=== PATIENT | male | born 1960 | race Caucasian/White ===

== ENCOUNTER 2018-01-05 09:42 | Emergency (ER) | payer SELFPAY ==
--- NOTE | 2018-01-05 10:04 | ER Document Report ---
ED Medical Screen (RME) - General Chief Complaint: Leg Pain Stated Complaint: LEG PAIN Time Seen by Provider: 01/05/18 09:58 Mode of Arrival: Ambulatory Information source: Patient Notes: 57-year-old male with coronary artery disease, congestive heart failure, hypertension, hyperlipidemia, type 2 diabetes presents with intermittent right calf pain for 3 weeks. Patient denies any injury. He states it does not feel like his usual muscle cramping. He denies any history of PE, DVT. I have greeted and performed a rapid initial assessment of this patient. A comprehensive ED assessment and evaluation of the patient, analysis of test results and completion of medical decision making process we will be contacted by additional ED providers. PHYSICAL EXAMINATION: GENERAL: Well-appearing, well-nourished and in no acute distress. LUNGS: No respiratory distress Musculoskeletal: No obvious swelling, erythema of the right lower extremity. Pain with palpation of the right calf. NEUROLOGICAL: Normal speech, normal gait. PSYCH: Normal mood, normal affect. SKIN: Warm, Dry, normal turgor, no rashes or lesions noted. TRAVEL OUTSIDE OF THE [place] IN LAST 30 DAYS: No - HPI Onset: Other Onset/Duration: Intermittent Quality of pain: Burning, Stabbing Severity: Moderate Associated Symptoms: denies: Chest pain, Shortness of breath Exacerbated by: Movement, Walking Relieved by: Denies Similar symptoms previously: Yes Recently seen / treated by doctor: No - Related Data Smoking: Non-smoker Frequency of alcohol use: None Drug Abuse: None Allergies/Adverse Reactions: codeine [Codeine] Allergy (Verified 01/05/18 09:48) Nausea Past Medical History - Social History Chew tobacco use (# tins/day): No Frequency of alcohol use: None Drug Abuse: None - Past Medical History Cardiac Medical History: Reports: Hx Congestive Heart Failure, Hx Coronary Artery Disease, Hx Hypercholesterolemia, Hx Hypertension Denies: Hx DVT, Hx Heart Attack, Hx Pulmonary Embolism Pulmonary Medical History: Denies: Hx Asthma, Hx Bronchitis, Hx COPD, Hx Pneumonia, Hx Tuberculosis - older brother had TB 1968 Endocrine Medical History: Reports: Hx Diabetes Mellitus Type 2 Renal/ Medical History: Denies: Hx Peritoneal Dialysis GI Medical History: Reports: Hx Gastroesophageal Reflux Disease Psychiatric Medical History: Denies: Hx Depression Past Surgical History: Reports: Hx Oral Surgery - wisdom, Hx Orthopedic Surgery - L4-L5. Denies: Hx Pacemaker - Immunizations Hx Diphtheria, Pertussis, Tetanus Vaccination: Yes Physical Exam - Vital signs Vitals: Temp Pulse Resp BP Pulse Ox 98.0 F 59 L 16 159/87 H 94 01/05/18 09:53 01/05/18 09:53 01/05/18 09:53 01/05/18 09:53 01/05/18 09:53 Course - Vital Signs Vital signs: Temp Pulse Resp BP Pulse Ox 98.0 F 59 L 16 159/87 H 94 01/05/18 09:53 01/05/18 09:53 01/05/18 09:53 01/05/18 09:53 01/05/18 09:53 Doctor's Discharge - Discharge Referrals: MARIO ANGULO MD [Primary Care Provider] - Follow up as needed
[2018-01-05 10:40] LABS: ANION GAP 10 (5-19); BLOOD UREA NITROGEN 13 mg/dL (7-20); CALCIUM 9.3 mg/dL (8.4-10.2); CARBON DIOXIDE 27 mmol/L (22-30); CHLORIDE 100 mmol/L (98-107); GLUCOSE 212 mg/dL (75-110); POTASSIUM 4.1 mmol/L (3.6-5.0); SODIUM 136.5 mmol/L (137-145)
--- NOTE | 2018-01-05 10:57 | ER Document Report ---
ED General - General Chief Complaint: Leg Pain Stated Complaint: LEG PAIN Time Seen by Provider: 01/05/18 09:58 Mode of Arrival: Ambulatory TRAVEL OUTSIDE OF THE [place] IN LAST 30 DAYS: No - HPI Notes: Patient is a 57-year-old male that presents to the emergency department for chief complaint of right leg pain. Patient reports a sharp hot pain in his medial right calf that has been intermittent for the last 3 weeks. He states it initially lasted 30-40 seconds at a time and then completely resolved. He states when it started it occurred maybe every other day. He is now having the pain 4-5 times daily. He states that it is nonradiating. There is no aggravating or relieving factors. He took Motrin today with no relief. He denies any history or family history of DVT/PE. He denies any chest pain, palpitations and shortness of breath. He denies injury to the area. Past Medical History: Diabetes, CAD, CHF, hypertension, hyperlipidemia Past Surgical History: Back surgery Social History: Denies drugs alcohol and tobacco Family History: Reviewed and noncontributory for presenting illness Allergies: Reviewed, see documented allergy list. REVIEW OF SYSTEMS: CONSTITUTIONAL : No fever No chills No diaphoresis No recent illness EENT: No vision changes No congestion No sore throat CARDIOVASCULAR: No chest pain No palpitations RESPIRATORY: No shortness of breath No cough No difficulty breathing GASTROINTESTINAL: No abdominal pain No nausea No vomiting No diarrhea GENITOURINARY: No dysuria No hematuria No difficulty urinating MUSCULOSKELETAL: No back pain leg pain No arm pain SKIN: No rashes No lesions LYMPHATIC: No swollen, enlarged glands. NEUROLOGICAL: No lightheadedness No headache No weakness No paresthesias PSYCHIATRIC: No anxiety No depression PHYSICAL EXAMINATION: Vital signs reviewed, nursing noted reviewed. GENERAL: Well-appearing, well-nourished and in no acute distress. HEAD: Atraumatic, normocephalic. EYES: Eyes appear normal, extraocular movements intact, sclera anicteric, conjunctiva are normal. ENT: nares patent, oropharynx clear without exudates. Moist mucous membranes. NECK: Normal range of motion, supple without lymphadenopathy LUNGS: Breath sounds clear to auscultation bilaterally and equal. No wheezes rales or rhonchi. HEART: Regular rate and rhythm without murmurs. +2/4 DP and PT pulses bilaterally. normal capillary refill in bilateral lower extremities. ABDOMEN: Soft, nontender, normoactive bowel sounds. No rebound, guarding, or rigidity. No masses appreciated. EXTREMITIES: Nontender, good range of motion, no pitting or edema. Negative Homans sign bilaterally NEUROLOGICAL: No focal neurological deficits. Moves all extremities spontaneously Motor and sensory grossly intact on exam. PSYCH: Normal mood, normal affect. SKIN: Warm, Dry, normal turgor, no rashes or lesions noted on exposed skin - Related Data Allergies/Adverse Reactions: codeine [Codeine] Allergy (Verified 01/05/18 09:48) Nausea Past Medical History - General Information source: Patient - Social History Smoking Status: Never Smoker Chew tobacco use (# tins/day): No Frequency of alcohol use: None Drug Abuse: None Family History: Reviewed & Not Pertinent, CAD Patient has suicidal ideation: No Patient has homicidal ideation: No - Past Medical History Cardiac Medical History: Reports: Hx Congestive Heart Failure, Hx Coronary Artery Disease, Hx Hypercholesterolemia, Hx Hypertension Denies: Hx DVT, Hx Heart Attack, Hx Pulmonary Embolism Pulmonary Medical History: Denies: Hx Asthma, Hx Bronchitis, Hx COPD, Hx Pneumonia, Hx Tuberculosis - older brother had TB 1968 Endocrine Medical History: Reports: Hx Diabetes Mellitus Type 2 Renal/ Medical History: Denies: Hx Peritoneal Dialysis GI Medical History: Reports: Hx Gastroesophageal Reflux Disease Psychiatric Medical History: Denies: Hx Depression Past Surgical History: Reports: Hx Oral Surgery - wisdom, Hx Orthopedic Surgery - L4-L5. Denies: Hx Pacemaker - Immunizations Hx Diphtheria, Pertussis, Tetanus Vaccination: Yes Review of Systems - Review of Systems Notes: Dictated Physical Exam - Vital signs Vitals: Temp Pulse Resp BP Pulse Ox 98.0 F 59 L 16 159/87 H 94 01/05/18 09:53 01/05/18 09:53 01/05/18 09:53 01/05/18 09:53 01/05/18 09:53 - Notes Notes: Dictated Course - Re-evaluation Re-evalutation: 01/05/18 10:57 Vitals reviewed. Nursing notes reviewed. Currently patient is asymptomatic and does not require any medication for pain. Ultrasound will be obtained to evaluate for DVT. Lab work obtained to evaluate for electrolyte derangements. He has normal perfusion and no arterial occlusion. 01/05/18 11:53 Lab work shows no electrolyte derangements or hypomagnesemia. Venous duplex negative for acute DVT. Patient still not having any symptoms while in the emergency room. He will follow with his primary care doctor. Symptoms may be related to neuropathy which he has previously been diagnosed with but has not been taking any medication because of side effects. Patient in agreement with following with his PCP for reevaluation in a few days. He will return for new or worsening symptoms. Discharged home in stable condition. Laboratory 01/05/18 10:10 Sodium 136.5 L Potassium 4.1 Chloride 100 Carbon Dioxide 27 Anion Gap 10 BUN 13 Creatinine 0.70 Est GFR ( Amer) > 60 Est GFR (Non-Af Amer) > 60 Glucose 212 H Calcium 9.3 Magnesium 1.8 - Vital Signs Vital signs: Temp Pulse Resp BP Pulse Ox 98.0 F 59 L 16 159/87 H 94 01/05/18 09:53 01/05/18 09:53 01/05/18 09:53 01/05/18 09:53 01/05/18 09:53 - Laboratory Result Diagrams: 01/05/18 10:10 Laboratory results interpreted by me: 01/05/18 10:10 Sodium 136.5 L Glucose 212 H Discharge - Discharge Clinical Impression: Right leg pain Condition: Stable Disposition: HOME, SELF-CARE Instructions: Leg Pain Nonspecific ([facility]) Additional Instructions: Please return to the emergency department if you have any worsening, or concern of your symptoms. Please return to the emergency department if you develop chest pain, difficulty breathing, severe abdominal pain, or ongoing vomiting. Please follow-up with your primary care physician in 2-3 days and any other recommended physicians. If prescribed, take all medications as directed. If you have any questions or concerns do not hesitate to return the emergency department for evaluation. [] Referrals: MARIO ANGULO MD [Primary Care Provider] - Follow up in 3-5 days
[2018-01-05 11:57] VITALS: BP 151/88
--- NOTE | 2018-01-05 12:14 | RADIOLOGY REPORT (SQ) ---
EXAM DESCRIPTION: VENOUS UNILATERAL LOWER COMPLETED DATE/TIME: 01/05/2018 11:59 am REASON FOR STUDY: pain right leg / COMPARISON: None. TECHNIQUE: Dynamic and static aranda scale and color images acquired of the right leg venous system. S elected spectral images acquired with additional compression and augmentation maneuvers. The contrala teral common femoral vein and saphenofemoral junction were also imaged. Images stored on PACS. LIMITATIONS: None. FINDINGS: COMMON FEMORAL: Normal phasicity, compression and augmentation. No visualized echogenic ma terial on aranda scale. No defects on color images. FEMORAL: Normal compression and augmentation. No visualized echogenic material on aranda scale. No defe cts on color images. POPLITEAL: Normal compression, augmentation. No visualized echogenic material on aranda scale. No defec ts on color images. CALF VESSELS: Normal compression, augmentation. No visualized echogenic material on aranda scale. No de fects on color images. GSV and SSV: Normal compression, augmentation. No visualized echogenic material on aranda scale. No def ects on color images. ANY DEEP VENOUS INSUFFICIENCY: Not evaluated. ANY EVIDENCE OF POPLITEAL CYST: No. OTHER: No other significant finding. CONTRALATERAL COMMON FEMORAL VEIN AND SAPHENOFEMORAL JUNCTION: Normal phasicity, compression and augmentation. No visualized echogenic material on aranda scale. No de fects on color images. IMPRESSION: NO EVIDENCE DVT OR SVT IN THE RIGHT LEG. TECHNICAL DOCUMENTATION: JOB ID: [id number] [employer]- All Rights Reserved Reading location - IP/workstation name: [facility]-RR
== END 2018-01-05 13:23 | disposition home or self-care (01) ==
LOC: ER 09:42
DX: M79.661 Pain in right lower leg (principal); E11.40 Type 2 diabetes mellitus with diabetic neuropathy, unspecified; I25.10 Atherosclerotic heart disease of native coronary artery without angina pectoris; I10 Essential (primary) hypertension; Z88.5 Allergy status to narcotic agent
CPT/HCPCS: 36415; 80048; 83735; 93971; 99284

== ENCOUNTER 2018-09-15 02:21 | Inpatient (IN) | payer OTHER ==
[2018-09-15] MEDS ORDERED: NORMAL SALINE 1000 ML 1,000 ML IV ONE (02:52)
[2018-09-15] MEDS ORDERED: ONDANSETRON HCL INJ/PF 4 MG/2 ML SDV IV ONE (02:52)
[2018-09-15] MEDS ORDERED: HYDROMORPHONE HCL INJ/PF 2 MG/ML AMPULE IV ONE ×2 (02:52→04:33)
--- NOTE | 2018-09-15 02:59 | ER Document Report ---
ED General - General Chief Complaint: Abdominal Pain Stated Complaint: STOMACH PAIN Time Seen by Provider: 09/15/18 02:41 Notes: Patient is a pleasant 58-year-old male who presents with complaint of abdominal distention and pain as well as intractable vomiting. Patient says symptoms started about 24 hours ago. He said initially started his pain. He said he did have a small bowel movement at that time. Initially was passing little gas but has not passed gas in the last 12 to 18 hours. He says starting approximately 12 hours ago he started having a lot of vomiting. He says he cannot hold anything down. He denies checking his temperature, but said he felt febrile earlier. No history of abdominal surgeries. Patient denies this ever happening in the past. TRAVEL OUTSIDE OF THE [place] IN LAST 30 DAYS: No - Related Data Allergies/Adverse Reactions: codeine [Codeine] Allergy (Verified 01/05/18 09:48) Nausea Past Medical History - Social History Smoking Status: Unknown if Ever Smoked Frequency of alcohol use: None Drug Abuse: None Family History: Reviewed & Not Pertinent, CAD - Past Medical History Cardiac Medical History: Reports: Hx Congestive Heart Failure, Hx Coronary Hannah ry Disease, Hx Hypercholesterolemia, Hx Hypertension Denies: Hx DVT, Hx Heart Attack, Hx Pulmonary Embolism Pulmonary Medical History: Denies: Hx Asthma, Hx Bronchitis, Hx COPD, Hx Pneumonia, Hx Tuberculosis - older brother had TB 1968 Endocrine Medical History: Reports: Hx Diabetes Mellitus Type 2 Renal/ Medical History: Denies: Hx Peritoneal Dialysis GI Medical History: Reports: Hx Gastroesophageal Reflux Disease Psychiatric Medical History: Denies: Hx Depression Past Surgical History: Reports: Hx Oral Surgery - wisdom, Hx Orthopedic Surgery - L4-L5. Denies: Hx Pacemaker - Immunizations Hx Diphtheria, Pertussis, Tetanus Vaccination: Yes Review of Systems - Review of Systems Notes: My Normal Review Basic REVIEW OF SYSTEMS: CONSTITUTIONAL : Denies fever, chills, or sweats. Denies recent illness. EENT: Denies eye, ear, throat, or mouth pain or symptoms. Denies nasal or sinus congestion. RESPIRATORY: Denies cough, cold, or chest congestion. Denies shortness of breath, difficulty breathing, or wheezing. GASTROINTESTINAL: Abdominal pain and vomiting. MUSCULOSKELETAL: Denies neck or back pain or joint pain or swelling. SKIN: Denies rash or skin lesions. NEUROLOGICAL: Denies altered mental status or loss of consciousness. Denies headache. Denies weakness or paralysis or loss of use of either side. Denies problems with gait or speech. Denies sensory or motor loss. ALL OTHER SYSTEMS REVIEWED AND NEGATIVE. Physical Exam - Vital signs Vitals: Temp Pulse Resp BP Pulse Ox 98.1 F 91 26 H 157/87 H 92 09/15/18 02:24 09/15/18 02:24 09/15/18 02:24 09/15/18 02:24 09/15/18 02:24 - Notes Notes: General Appearance: Well nourished, alert, cooperative, no acute distress, moderate obvious discomfort. Vitals: reviewed, See vital signs table. Head: no swelling or tenderness to the head Eyes: PERRL, EOMI, Conjuctiva clear Lungs: No wheezing, No rales, No rhonci, No accessory muscle use, good air exchange bilaterally. Heart: Normal rate, Regular rythm, No murmur, no rub Abdomen: Normal BS. Abdomen is very distended. He has moderate generalized pain to palpation. There is really no focality to the pain. His abdomen is not rigid or firm despite distention. It is still soft. Bedside FAST exam does not show any evidence of free fluid in the abdomen. Extremities: s good pulses in all extremities, no swelling or tenderness in the extremities, no edema. Skin: warm, dry, appropriate color, no rash Neuro: speech clear, oriented x 3, normal affect, responds appropriately to questions. Course - Re-evaluation Re-evalutation: 09/15/18 02:53 Initial evaluation patient's abdomen is very distended. It is not hard or peritoneal nature but is very distended and concerning on exam. I did a quick FAST exam. There is no free fluid in the abdomen. Bladder is not distended. I have ordered acute abdominal series and asked radiology to come over and performed immediately and do a portable. Patient's vital signs are currently stable. We will place him on a monitor. I have ordered pain medicine, nausea m edicine as well as labs. 09/15/18 03:32 Patient's x-ray demonstrates what appears to be obstruction with a very large gaseous distention of the small bowel. I informed patient I recommend placing a NG tube to decompress his abdomen as soon as possible. Patient is agreeable to this. I did explain the procedure to him. I will give him a small dose of Versed prior to placing the NG tube. 09/15/18 04:01 After placement of NG tube we initially got out 1100 mL's of yellowish fluid. Patient is tolerating NG tube well. We will send the patient for CT scan with IV contrast. Oral contrast not being used being that patient had such severe distention and required NG tube for decompression and would not tolerate p.o. 09/15/18 05:41 CT scan shows mid to distal small bowel obstruction with possible transition point right lower quadrant. I did call the surgeon, Dr. Rich and discussed case with him. He said he be happy to follow the patient request of medicine could admit the patient. I did speak with the hospitalist, Dr. Mccracken, who agrees to admit the patient. Dictation of this chart was performed using voice recognition software; therefore, there may be some unintended grammatical errors. - Vital Signs Vital signs: Temp Pulse Resp BP Pulse Ox 98.1 F 91 20 134/73 H 93 09/15/18 02:24 09/15/18 02:24 09/15/18 05:01 09/15/18 05:00 09/15/18 05:01 - Laboratory Result Diagrams: 09/15/18 03:10 09/15/18 03:10 Laboratory results interpreted by me: 09/15/18 09/15/18 09/15/18 03:10 03:10 03:10 RBC 6.20 H Hgb 17.1 H MCV 79 L RDW 14.2 H Plt Count 139 L Monocytes % 14.3 H Chloride 96 L BUN 27 H Glucose 217 H Lactic Acid 2.4 H Total Bilirubin 1.4 H AST 97 H ALT 151 H Discharge - Discharge Clinical Impression: Small bowel obstruction Condition: Stable Disposition: ADMITTED INPATIENT Admitting Provider: Nawaf (Hospitalist) Unit Admitted: Telemetry
[2018-09-15 03:29] LABS: ABSOLUTE LYMPHOCYTES (AUTO) 1.4 10^3/uL (0.5-4.7); ABSOLUTE MONOCYTES (AUTO) 1.2 10^3/uL (0.1-1.4); ABSOLUTE NEUT (AUTO) 5.5 10^3/uL (1.7-8.2); BASOPHILS % (AUTO) 0.4 % (0-2); EOSINOPHILS % (AUTO) 0.5 % (0-6); HEMATOCRIT 48.7 % (37.9-51.0); HEMOGLOBIN 17.1 g/dL (13.5-17.0); LYMPHOCYTES % (AUTO) 17.7 % (13-45); MEAN CORPUSCULAR HEMOGLOBIN 27.6 pg (27.0-33.4); MEAN CORPUSCULAR HGB CONC 35.2 g/dL (32.0-36.0); MEAN CORPUSCULAR VOLUME 79 fl (80-97); MONOCYTES % (AUTO) 14.3 % (3-13); PLATELET COUNT 139 10^3/uL (150-450); RED CELL DISTRIBUTION WIDTH 14.2 % (11.5-14.0); SEGMENTED NEUTROPHILS % (AUTO) 67.1 % (42-78); TOTAL CELLS COUNTED % (AUTO) 100 %; WHITE BLOOD COUNT 8.2 10^3/uL (4.0-10.5)
[2018-09-15] MEDS ORDERED: MIDAZOLAM 2 MG/2 ML INJ IV ONE (03:31)
[2018-09-15] MEDS ORDERED: LIDOCAINE 2% JELLY 5 ML TUBE TOP ONE (03:31)
--- NOTE | 2018-09-15 03:47 | RADIOLOGY REPORT (SQ) ---
EXAM DESCRIPTION: XR ABDOMEN SUPINE AND ERECT WITH CHEST (ABD ACUTE SERIES) COMPLETED DATE/TME: 09/15/2018 02:51 CLINICAL HISTORY: 58 years, Male, abdominal pain and distention COMPARISON: None. NUMBER OF VIEWS: 3 TECHNIQUE: Upright chest with supine and erect views of the abdomen LIMITATIONS: None. FINDINGS: Cardiomegaly. Low lung volumes. No pneumothorax. Lungs are clear. No free air under the hemidiaphragms. Dilated air-filled loops of small bowel for small bowel obstruction is not excluded. Maximal diameter of small bowel is approximately 5.6 cm. Associated air-fluid levels. IMPRESSION: No acute cardiopulmonary process. Findings concerning for small bowel obstruction copyright 2010 [employer]- All Rights Reserved
[2018-09-15 03:49] LABS: ALANINE AMINOTRANSFERASE 151 U/L (21-72); ALBUMIN 4.1 g/dL (3.5-5.0); ALKALINE PHOSPHATASE 61 U/L (38-126); ANION GAP 13 (5-19); ASPARTATE AMINO TRANSFERASE 97 U/L (17-59); BILIRUBIN,DIRECT 0.3 mg/dL (0.0-0.4); BILIRUBIN,TOTAL 1.4 mg/dL (0.2-1.3); BLOOD UREA NITROGEN 27 mg/dL (7-20); CALCIUM 8.9 mg/dL (8.4-10.2); CARBON DIOXIDE 29 mmol/L (22-30); CHLORIDE 96 mmol/L (98-107); GLUCOSE 217 mg/dL (75-110); LIPASE 42.7 U/L (23-300); POTASSIUM 3.8 mmol/L (3.6-5.0); SODIUM 137.9 mmol/L (137-145); TOTAL PROTEIN 6.9 g/dL (6.3-8.2)
--- NOTE | 2018-09-15 05:13 | RADIOLOGY REPORT (SQ) ---
EXAM: CT abdomen and pelvis with IV contrast CLINICAL DATA: 58-year-old male with abdominal pain, rule out bowel obstruction TECHNICAL DATA: Axial CT imaging of the abdomen and pelvis was performed following the administration of intravenous contrast.. Sagittal and coronal reconstructed images were then performed. The CT study is performed according to ALARA (as low as reasonably achievable) or ALARA/IMAGE GENTLY, with automatic adjustment of mA and/or kV according to patient size. Performed on: 09/15/2018 at 4:35 AM. Comparison: Prior KUB performed on 03/30/2013 FINDINGS: Lung bases: The lung bases are clear. There is minimal bibasilar atelectasis and/or fibrosis. Liver: The liver is enlarged and measures 21 cm in craniocaudal dimension. No focal hepatic abnormalities are identified. There is decreased attenuation of the liver commonly due to fatty infiltration. Spleen: The spleen is mildly enlarged and measures 14 cm in craniocaudal dimension Gallbladder and bile duct: The gallbladder is well distended and unremarkable. There is no biliary ductal dilatation. Pancreas: The pancreas is grossly normal in size and configuration. Adrenal Glands:The adrenal glands are normal in size and configuration. Kidneys:The kidneys are normal in size and configuration. There is no evidence of hydronephrosis. There is no evidence of nephrolithiasis. There is an approximately 1.4 cm sharply circumscribed hypodense lesion along the cortex of the midpole of the left kidney. This likely represents an incidental renal cyst Stomach:The stomach is grossly normal. There is no definite hiatal hernia. A feeding tube extends into the stomach. Bowel: There are multiple dilated fluid-filled small bowel loops compatible with a mid to distal small bowel obstruction. The transition point is not clearly visualized but is suspected to be within the right lower quadrant. There is evidence of colonic diverticulosis. Appendix: The appendix is normal. Free air:There is no evidence of free air. Free fluid: There is no evidence of free fluid. Vasculature: The aorta is normal in caliber and contour. The inferior vena cava is grossly unremarkable. Lymphadenopathy: No pathologic lymphadenopathy is identified. Bladder: The bladder is well distended and smooth in contour. Reproductive: The prostate gland is grossly within normal limits. Bones: No acute osseous abnormalities are identified. There are mild degenerative changes of the spine. There is moderate disc space narrowing at L4-L5. Soft tissues: No focal soft tissue abnormalities are identified. IMPRESSION: 1. CT findings compatible with a mid to distal small bowel obstruction. The transition point is not clearly visualized but is suspected to be within the right lower quadrant. 2. Colonic diverticulosis. 3. Hepatosplenomegaly and fatty infiltration of the liver.
[2018-09-15] MEDS ORDERED: ACETAMINOPHEN 650 MG SUPP.RECT PR PRN (06:37)
[2018-09-15] MEDS ORDERED: IPRATROPIUM/ALBUTEROL 0.5-2.5 MG/3 ML AMPUL NEB PRN (06:37)
--- NOTE | 2018-09-15 06:37 | PDOC H&P ---
History of Present Illness Admission Date/PCP: 09/15/18 05:57 MARIO ANGULO MD Patient complains of: Abdominal pain nausea vomiting History of Present Illness: DASHA JARQUIN is a 58 year old male with past medical history of hypertension, essential tremor, diverticulitis and diabetes. Patient presents with 48 hours of abdominal distention, pain, nausea and vomiting without flatus for 24 hours. Patient denies previous episode without change in medication regiment denies chest pain palpitations shortness of breath. In the emergency room he has imaging strongly suggestive for small bowel obstruction, NG tube was placed with immediate results of 1.5 L of gastric content. He is referred to surgery and the hospitalist for admission. Past Medical History Cardiac Medical History: Reports: Coronary Artery Disease, Hyperlipidema, Hypertension Denies: DVT, Myocardial Infarction, Pulmonary Embolism Pulmonary Medical History: Denies: Asthma, Bronchitis, Chronic Obstructive Pulmonary Disease (COPD), Pneumonia, Tuberculosis - older brother had TB 1968 Endocrine Medical History: Reports: Diabetes Mellitus Type 2 GI Medical History: Reports: Diverticulitis, Gastroesophageal Reflux Disease Psychiatric Medical History: Denies: Alcohol Dependency, Depression, Tobacco Dependency Past Surgical History Past Surgical History: Reports: Orthopedic Surgery - L4-L5 Denies: Pacemaker Social History Information Source: Patient Lives with: Family Smoking Status: Unknown if Ever Smoked Frequency of Alcohol Use: None Hx Recreational Drug Use: No Hx Prescription Drug Abuse: No - Advance Directive Resuscitation Status: Full Code Family History Family History: CAD, Hypertension Parental Family History Reviewed: Yes Children Family History Reviewed: Yes Sibling(s) Family History Reviewed.: Yes Medication/Allergy Home Medications: Aspirin [Aspirin 81 mg Chewable Tablet] 81 mg PO DAILY 01/04/12 Lorazepam [Ativan 1 mg Tablet] 1 mg PO QHS #30 tablet 01/01/14 Losartan Potassium [Cozaar 50 mg Tablet] 100 mg PO DAILY #30 tablet 01/01/14 Metformin HCl [Glucophage 500 mg Tablet] 500 mg PO DAILY #30 tablet 01/01/14 Propranolol HCl [Inderal 10 mg Tablet] 20 mg PO BID #60 tablet 01/01/14 Erythromycin Base [Erythromycin Oph 1 Gm Oint Ud] 1 applic OD QID #1 tube 04/25/14 Loratadine [Claritin 10 Mg Tablet] 10 mg PO DAILY #30 tablet 04/25/14 Allergies/Adverse Reactions: codeine [Codeine] Allergy (Verified 01/05/18 09:48) Nausea Review of Systems Constitutional: ABSENT: chills, fever(s), headache(s), weight gain, weight loss Eyes: ABSENT: visual disturbances Ears: ABSENT: hearing changes Cardiovascular: ABSENT: chest pain, dyspnea on exertion, edema, orthropnea, palpitations Respiratory: ABSENT: cough, hemoptysis Gastrointestinal: ABSENT: abdominal pain, constipation, diarrhea, hematemesis, hematochezia, nausea, vomiting Genitourinary: ABSENT: dysuria, hematuria Musculoskeletal: ABSENT: joint swelling Integumentary: ABSENT: rash, wounds Neurological: ABSENT: abnormal gait, abnormal speech, confusion, dizziness, focal weakness, syncope Psychiatric: ABSENT: anxiety, depression, homidical ideation, suicidal ideation Endocrine: ABSENT: cold intolerance, heat intolerance, polydipsia, polyuria Hematologic/Lymphatic: ABSENT: easy bleeding, easy bruising Physical Exam Vital Signs: Temp Pulse Resp BP Pulse Ox 98.1 F 91 20 134/73 H 93 09/15/18 02:24 09/15/18 02:24 09/15/18 05:01 09/15/18 05:00 09/15/18 05:01 Intake & Output 09/13/18 09/14/18 09/15/18 11:59 11:59 11:59 Intake Total 1000 Output Total 850 Balance 150 Weight 120.8 kg General appearance: PRESENT: cooperative, obese, severe distress Head exam: PRESENT: atraumatic, normocephalic Eye exam: PRESENT: conjunctiva pink, EOMI, PERRLA. ABSENT: scleral icterus Ear exam: PRESENT: normal external ear exam Mouth exam: PRESENT: moist, tongue midline Neck exam: ABSENT: carotid bruit, JVD, lymphadenopathy, thyromegaly Respiratory exam: PRESENT: clear to auscultation kori. ABSENT: rales, rhonchi, wheezes Cardiovascular exam: PRESENT: tachycardia. ABSENT: diastolic murmur, rubs, systolic murmur Pulses: PRESENT: normal dorsalis pedis pul Vascular exam: PRESENT: normal capillary refill GI/Abdominal exam: PRESENT: diminished bowel sounds, distended, firm, hypoactive bowel sounds, tenderness. ABSENT: ascites, guarding, hyperactive bowel sounds Rectal exam: PRESENT: deferred Extremities exam: PRESENT: full ROM. ABSENT: calf tenderness, clubbing, pedal edema Neurological exam: PRESENT: alert, awake, oriented to person, oriented to place, oriented to time, oriented to situation, CN II-XII grossly intact. ABSENT: motor sensory deficit Psychiatric exam: PRESENT: appropriate affect, normal mood. ABSENT: homicidal ideation, suicidal ideation Skin exam: PRESENT: dry, intact, warm, other - Psoriasis plaques on flexor surfaces of the knee and elbow. ABSENT: cyanosis, rash Results Laboratory Results: 09/15/18 03:10 09/15/18 03:10 09/15/18 09/15/18 09/15/18 03:10 03:10 03:10 WBC 8.2 RBC 6.20 H Hgb 17.1 H Hct 48.7 MCV 79 L MCH 27.6 MCHC 35.2 RDW 14.2 H Plt Count 139 L Seg Neutrophils % 67.1 Lymphocytes % 17.7 Monocytes % 14.3 H Eosinophils % 0.5 Basophils % 0.4 Absolute Neutrophils 5.5 Absolute Lymphocytes 1.4 Absolute Monocytes 1.2 Absolute Eosinophils 0.0 Absolute Basophils 0.0 Sodium 137.9 Potassium 3.8 Chloride 96 L Carbon Dioxide 29 Anion Gap 13 BUN 27 H Creatinine 0.97 Est GFR ( Amer) > 60 Est GFR (Non-Af Amer) > 60 Glucose 217 H Lactic Acid 2.4 H Calcium 8.9 Total Bilirubin 1.4 H AST 97 H ALT 151 H Alkaline Phosphatase 61 Total Protein 6.9 Albumin 4.1 Lipase 42.7 Impressions: Acute Abdomen Series 09/15/18 02:51 IMPRESSION: No acute cardiopulmonary process. Findings concerning for small bowel obstruction copyright 2011 [employer]- All Rights Reserved Abdomen/Pelvis CT 09/15/18 04:00 IMPRESSION: 1. CT findings compatible with a mid to distal small bowel obstruction. The transition point is not clearly visualized but is suspected to be within the right lower quadrant. 2. Colonic diverticulosis. 3. Hepatosplenomegaly and fatty infiltration of the liver. Assessment and Plan - Diagnosis (1) Hypertension Is this a current diagnosis for this admission?: Yes Plan: IV TRUNG inhibitor and hydralazine as needed (2) Diabetes Is this a current diagnosis for this admission?: Yes Plan: Humalog sliding scale every 6 hours while n.p.o. (3) Small bowel obstruction Is this a current diagnosis for this admission?: Yes Plan: NG decompression, symptomatic management, follow-up chemistry, lactic acid, consider Gastrografin image, follow-up surgical consult - Time Time Spent with patient: 35 or more minutes - Inpatient Certification Medical Necessity: Need Close Monitoring Due to Risk of Patient Decompensation
[2018-09-15] MEDS ORDERED: GLUCAGON,HUMAN RECOMB 1 MG INJ IM PRN (06:41)
[2018-09-15] MEDS ORDERED: DEXTROSE 50%-WATER 25 GM/50 ML DISP.SYRIN IV PRN ×2 (06:41)
[2018-09-15] MEDS ORDERED: DEXTROSE 40% GEL 15 GM TUBE PO PRN ×2 (06:41)
[2018-09-15] MEDS ORDERED: HYDRALAZINE HCL INJ/PF 20 MG/1 ML SDV IV PRN (06:41)
[2018-09-15] MEDS ORDERED: ENALAPRILAT DIHYDRATE INJ/PF 1.25 MG/1 ML SDV IV ONE (06:41)
[2018-09-15] MEDS ORDERED: NORMAL SALINE 1000 ML 1,000 ML IV SCH (06:45)
--- NOTE | 2018-09-15 06:57 | PDOC CONSULTATION ---
Consultation Consult Date: 09/15/18 Attending physician:: MARIO ACOSTA Provider Consulted: MOHIT MENDEZ Consult reason:: Abdominal pain, distention History of Present Illness Admission Date/PCP: 09/15/18 05:57 MARIO ANGULO MD Patient complains of: Abdominal pain History of Present Illness: DASHA JARQUIN is a 58 year old male Presents emergency department via ground rescue complaining of acute onset abdominal pain last night. Patient reports multiple family members sick in his vicinity over the weekend. He thought he was coming down with a virus. He felt poorly on Friday, then symptoms were better yesterday then developed more abd ominal pain nausea vomiting last night and early this morning. He is seen in the emergency department where he was found to be distended. He had a nasogastric tube inserted which drained over a liter and a half of fluid. A CT scan of the abdomen and pelvis without oral contrast revealed findings suggestive of small bowel obstruction. Surgery was consulted. The patient was admitted to the hospitalist service. Patient denies previous episodes of abdominal pain, bowel obstruction, or gastrointestinal diagnoses. Last colonoscopy was 2 years ago, reportedly normal. Past Medical History Past Medical History: History of psoriasis, chronic tremor, chronic chronic musculoskeletal issues Cardiac Medical History: Reports: Congestive Heart Failure, Coronary Artery Disease, Hyperlipidema, Hypertension Denies: DVT, Myocardial Infarction, Pulmonary Embolism Pulmonary Medical History: Denies: Asthma, Bronchitis, Chronic Obstructive Pulmonary Disease (COPD), Pneumonia, Tuberculosis - older brother had TB 1968 Endocrine Medical History: Reports: Diabetes Mellitus Type 2 GI Medical History: Reports: Diverticulitis, Gastroesophageal Reflux Disease Psychiatric Medical History: Denies: Alcohol Dependency, Depression, Tobacco Dependency Past Surgical History Past Surgical History: Lumbar surgery remotely Past Surgical History: Reports: Orthopedic Surgery - L4-L5 Denies: Pacemaker Social History Lives with: Family Smoking Status: Unknown if Ever Smoked Frequency of Alcohol Use: None Hx Recreational Drug Use: No Hx Prescription Drug Abuse: No - Advance Directive Resuscitation Status: Full Code Family History Family History: CAD, Hypertension Parental Family History Reviewed: Yes Children Family History Reviewed: Yes Sibling(s) Family History Reviewed.: Yes Medication/Allergy Home Medications: Aspirin [Aspirin 81 mg Chewable Tablet] 81 mg PO DAILY 01/04/12 Lorazepam [Ativan 1 mg Tablet] 1 mg PO QHS #30 tablet 01/01/14 Losartan Potassium [Cozaar 50 mg Tablet] 100 mg PO DAILY #30 tablet 01/01/14 Metformin HCl [Glucophage 500 mg Tablet] 500 mg PO DAILY #30 tablet 01/01/14 Propranolol HCl [Inderal 10 mg Tablet] 20 mg PO BID #60 tablet 01/01/14 Erythromycin Base [Erythromycin Oph 1 Gm Oint Ud] 1 applic OD QID #1 tube 04/25/14 Loratadine [Claritin 10 Mg Tablet] 10 mg PO DAILY #30 tablet 04/25/14 Allergies/Adverse Reactions: codeine [Codeine] Allergy (Verified 01/05/18 09:48) Nausea Review of Systems Constitutional: PRESENT: as per HPI Eyes: ABSENT: visual disturbances Ears: ABSENT: hearing changes Gastrointestinal: PRESENT: as per HPI Genitourinary: ABSENT: dysuria, hematuria Musculoskeletal: PRESENT: other - Chronic musculoskeletal weakness of unclear etiology Neurological: PRESENT: weakness Endocrine: ABSENT: cold intolerance, heat intolerance, polydipsia, polyuria Hematologic/Lymphatic: ABSENT: easy bleeding, easy bruising Physical Exam Vital Signs: Temp Pulse Resp BP Pulse Ox 98.1 F 91 20 134/73 H 93 09/15/18 02:24 09/15/18 02:24 09/15/18 05:01 09/15/18 05:00 09/15/18 05:01 Intake & Output 09/13/18 09/14/18 09/15/18 06:59 06:59 06:59 Intake Total 1000 Output Total 850 Balance 150 Weight 120.8 kg General appearance: PRESENT: other - Moderate distress Head exam: PRESENT: normocephalic Eye exam: PRESENT: EOMI Mouth exam: PRESENT: dry mucosa Neck exam: PRESENT: full ROM Respiratory exam: PRESENT: decreased breath sounds Cardiovascular exam: PRESENT: RRR Pulses: PRESENT: normal carotid pulses, normal radial pulses, normal femoral pulses GI/Abdominal exam: PRESENT: other - Distended abdomen, mildly tympanitic, no rigidity and no Rectal exam: PRESENT: deferred - peritoneal signs Extremities exam: PRESENT: joint swelling Neurological exam: PRESENT: awake, oriented to person, oriented to place, oriented to time, oriented to situation Psychiatric exam: PRESENT: anxious Results Laboratory Results: 09/15/18 03:10 09/15/18 03:10 09/15/18 09/15/18 09/15/18 03:10 03:10 03:10 WBC 8.2 RBC 6.20 H Hgb 17.1 H Hct 48.7 MCV 79 L MCH 27.6 MCHC 35.2 RDW 14.2 H Plt Count 139 L Seg Neutrophils % 67.1 Lymphocytes % 17.7 Monocytes % 14.3 H Eosinophils % 0.5 Basophils % 0.4 Absolute Neutrophils 5.5 Absolute Lymphocytes 1.4 Absolute Monocytes 1.2 Absolute Eosinophils 0.0 Absolute Basophils 0.0 Sodium 137.9 Potassium 3.8 Chloride 96 L Carbon Dioxide 29 Anion Gap 13 BUN 27 H Creatinine 0.97 Est GFR ( Amer) > 60 Est GFR (Non-Af Amer) > 60 Glucose 217 H Lactic Acid 2.4 H Calcium 8.9 Total Bilirubin 1.4 H AST 97 H ALT 151 H Alkaline Phosphatase 61 Total Protein 6.9 Albumin 4.1 Lipase 42.7 Impressions: Acute Abdomen Series 09/15/18 02:51 IMPRESSION: No acute cardiopulmonary process. Findings concerning for small bowel obstruction copyright 2011 [employer]- All Rights Reserved Abdomen/Pelvis CT 09/15/18 04:00 IMPRESSION: 1. CT findings compatible with a mid to distal small bowel obstruction. The transition point is not clearly visualized but is suspected to be within the right lower quadrant. 2. Colonic diverticulosis. 3. Hepatosplenomegaly and fatty infiltration of the liver. Assessment & Plan - Diagnosis (1) Small bowel obstruction Is this a current diagnosis for this admission?: Yes Plan: Impression: Acute abdominal distention nausea and vomiting, with nonenhanced CT scan findings suggestive of small bowel obstruction however no focal transition point. Previous abdominal surgery. Currently patient is dehydrated; no clear peritoneal signs indicating need for surgical exploration at this moment Recommendations: 1. Agree with fluid resuscitation, metabolic management 2. Surgical team will reexamine patient later this morning, assess progress; explained to patient and possible need for further evaluation and treatment ending clinical condition. (2) Tremor due to disorder of central nervous system Is this a current diagnosis for this admission?: Yes (3) Psoriasis Is this a current diagnosis for this admission?: Yes (4) Musculoskeletal back pain Is this a current diagnosis for this admission?: Yes (5) Weakness Is this a current diagnosis for this admission?: Yes (6) Dehydration Is this a current diagnosis for this admission?: Yes (7) Diabetes Qualifiers: Diabetes mellitus type: type 2 Is this a current diagnosis for this admission?: Yes (8) Hypertension Is this a current diagnosis for this admission?: Yes - Time Time Spent: 30 to 50 Minutes Smoking Cessation Education: over 10 minutes Medications reviewed and adjusted accordingly: Yes Anticipated discharge: Home - Inpatient Certification Based on my medical assessment, after consideration of the patient's comorbidities, presenting symptoms, or acuity I expect that the services needed warrant INPATIENT care.: Yes I certify that my determination is in accordance with my understanding of Medicare's requirements for reasonable and necessary INPATIENT services [42 CFR 412.3e].: Yes Medical Necessity: Need For IV Fluids, Need for Pain Control
[2018-09-15] MEDS: ONDANSETRON HCL INJ/PF 4 MG/2 ML SDV IV PRN ×2 (07:03→13:50)
[2018-09-15] MEDS: FENTANYL CITRATE INJ/PF 100 MCG/2 ML AMPUL IV PRN ×2 (07:03→10:33)
[2018-09-15] MEDS: KETOROLAC TROMETHAMINE INJ/PF 30 MG/1 ML SDV IV PRN ×2 (07:05→20:12)
[2018-09-15] MEDS ORDERED: NORMAL SALINE 1000 ML 1,000 ML IV PRN (07:13)
[2018-09-15] MEDS ORDERED: NA PHOS,M-B/NA PHOS,DI-BA (ADULT) 133 ML ENEMA PR ONE (07:38)
--- NOTE | 2018-09-15 07:49 | EKG REPORT ---
SEVERITY:- ABNORMAL ECG - SINUS RHYTHM PROBABLE LEFT ATRIAL ABNORMALITY RIGHT BUNDLE BRANCH BLOCK : Confirmed by: Jose D Fuentes MD 15-Sep-2018 07:47:51
[2018-09-15 10:52] LABS: ANION GAP 13 (5-19); BLOOD UREA NITROGEN 28 mg/dL (7-20); CALCIUM 8.2 mg/dL (8.4-10.2); CARBON DIOXIDE 30 mmol/L (22-30); CHLORIDE 96 mmol/L (98-107); GLUCOSE 206 mg/dL (75-110); POTASSIUM 4.1 mmol/L (3.6-5.0); SODIUM 138.6 mmol/L (137-145)
[2018-09-15] MEDS: INSULIN LISPRO 100 UNIT/ML 3 ML VIAL SUBCUT SCH ×2 (11:56→20:19)
[2018-09-15] MEDS ORDERED: MORPHINE SULFATE 10 MG/ML INJ IV PRN ×2 (13:31→17:33)
[2018-09-15] MEDS ORDERED: ONDANSETRON HCL INJ/PF 4 MG/2 ML SDV IV PRN ×2 (13:45→17:33)
[2018-09-15] MEDS ORDERED: ONDANSETRON HCL INJ/PF 4 MG/2 ML SDV ONE ×2 (13:49→16:38)
[2018-09-15] MEDS ORDERED: HYDROMORPHONE HCL INJ/PF 2 MG/ML AMPULE IV PRN (13:58)
--- NOTE | 2018-09-15 14:26 | Progress Note ---
Provider Note Provider Note: pt has developed increased abd pain since this am also has blood tinged ng op Exam abd more distended, tympanitic, now with localized peritoneal irritation mid upper abd no bowel sounds he had a bm with the emema in er, however now is abd is more distended and tender I reviewed the ct again and did not note infectious etiol. However after review iwth Dr Barney, she feels there is a transition point near terminal ileum as well as a question of some portalvenous gas. I explained risks to pt and he agrees to proceed. he is now requiring pain meds, when seen in er this am he did not have any pain. risks of bleeding, infection, AK, stroke, pulm emboli pneumonia, need for colostomy, need of additional surgery as well as has been discussed. he agrees to proceed.
[2018-09-15] MEDS: HEPARIN SOD (PORCINE) 5,000 UNIT/ML 1 ML SYRINGE SUBCUT SCH ×2 (14:41→23:03)
[2018-09-15] MEDS ORDERED: CEFAZOLIN 1 GM/D5W RTU 1 GM/50 ML RTUPB IV SCH (16:00)
[2018-09-15] MEDS ORDERED: DEXAMETHASONE SOD PHOSPHATE INJ 4 MG/1 ML VIAL ONE (16:38)
[2018-09-15] MEDS ORDERED: MIDAZOLAM 2 MG/2 ML INJ ONE (16:38)
[2018-09-15] MEDS ORDERED: PROPOFOL INJ 200 MG/20 ML VIAL IV ONE (16:38)
[2018-09-15] MEDS ORDERED: SUGAMMADEX SODIUM 200 MG/2 ML SDV IV ONE (16:38)
[2018-09-15] MEDS ORDERED: FENTANYL CITRATE INJ/PF 100 MCG/2 ML AMPUL ONE (16:38)
[2018-09-15] MEDS ORDERED: BUPIVACAINE HCL 0.5%-EPI 1:200000 INJ/PF 30 ML VIAL ONE (16:42)
--- NOTE | 2018-09-15 17:00 | Progress Note ---
Provider Note Provider Note: 58 y.o. with PMH CAD, HTN, HLD, GERD, diverticulosis. He is admitted to the hospitalist service with surgery consulted for small bowel obstruction. CT abdomen/pelvis shows mid to distal small bowel obstruction, transition point not clearly visualized, colonic diverticulosis, hepatosplenomegaly and fatty infiltration of the liver. While in the emergency department, NG placed to low continuous wall suction. Enema administered, patient endorses small bowel movement. Patient was seen this morning briefly, he stated that the IV analgesia was alleviating his pain, but when it wears off "the pain is severe."The patient appeared relatively comfortable. His abdomen is quite distended but nontender. At approximately 1400, nursing staff notified this provider that the patient was experiencing significant abdominal pain. Upon bedside evaluation, the patient reported he felt that his abdomen was becoming more more distended and his abdominal pain was getting worse. The patient was diffusely tender, worse in the LLQ. Additionally, it was noted the patient was training PRB in the NGT. Dr. Salinas notified immediately. He performed a bedside assessment and determined that the patient would need an immediate exploratory laparoscopy with possible laparotomy. Plan to send patient to the OR today. and brother at the bedside, notified of the treatment plan.
[2018-09-15] MEDS ORDERED: MEPERIDINE HCL/PF INJ 25 MG/1 ML DISP.SYRIN IV PRN (17:33)
[2018-09-15] MEDS ORDERED: FENTANYL CITRATE INJ/PF 100 MCG/2 ML AMPUL IV PRN ×3 (17:33)
[2018-09-15] MEDS ORDERED: PROMETHAZINE HCL INJ 25 MG/1 ML VIAL IV PRN ×2 (17:33)
[2018-09-15] MEDS ORDERED: DIPHENHYDRAMINE HCL 50 MG/ML VIAL IV PRN (17:33)
[2018-09-15] MEDS ORDERED: METRONIDAZOLE 500 MG/NS RTU 500 MG/100 ML RTUPB IV SCH (18:00)
--- NOTE | 2018-09-15 18:16 | Operative Report ---
Nonrecallable Operative Report DATE OF SURGERY: 09/15/18 PREOPERATIVE DIAGNOSIS: abdominal pain POSTOPERATIVE DIAGNOSIS: ileus OPERATION: diagnostic laparoscopy SURGEON: FELICE BARBER ANESTHESIA: GA TISSUE REMOVED OR ALTERED: none COMPLICATIONS: none ESTIMATED BLOOD LOSS: 0 INTRAOPERATIVE FINDINGS: ileus, no necrotic bowel, no sbo. no diverticulitis, no gastric or duodenal ulcer PROCEDURE: see dictation
[2018-09-15] MEDS ORDERED: NORMAL SALINE 100 ML with PANTOPRAZOLE SODIUM 80 MG IV PRN ×2 (18:30)
[2018-09-15] MEDS ORDERED: RINGERS SOLUTION,LACTATED 1,000 ML IV ONE (19:00)
[2018-09-15] MEDS: METRONIDAZOLE 500 MG/NS RTU 500 MG/100 ML RTUPB IV SCH ×2 (21:12→22:58)
[2018-09-15 21:13] LABS: ANION GAP 7 (5-19); BLOOD UREA NITROGEN 25 mg/dL (7-20); CARBON DIOXIDE 29 mmol/L (22-30); CHLORIDE 101 mmol/L (98-107); GLUCOSE 184 mg/dL (75-110); POTASSIUM 4.3 mmol/L (3.6-5.0); SODIUM 136.7 mmol/L (137-145)
[2018-09-15 21:43] LABS: HEMATOCRIT 45.1 % (37.9-51.0); HEMOGLOBIN 15.7 g/dL (13.5-17.0); MEAN CORPUSCULAR HEMOGLOBIN 27.7 pg (27.0-33.4); MEAN CORPUSCULAR HGB CONC 34.9 g/dL (32.0-36.0); MEAN CORPUSCULAR VOLUME 80 fl (80-97); PLATELET COUNT 128 10^3/uL (150-450); RED BLOOD COUNT 5.68 10^6/uL (4.35-5.55); RED CELL DISTRIBUTION WIDTH 14.2 % (11.5-14.0); WHITE BLOOD COUNT 5.3 10^3/uL (4.0-10.5)
[2018-09-15 22:05] LABS: ABSOLUTE LYMPHOCYTES# (MANUAL) 0.8 10^3/uL (0.5-4.7); ABSOLUTE MONOCYTES # (MANUAL) 1.2 10^3/uL (0.1-1.4); BAND NEUTROPHILS % (MANUAL) 10 % (3-5); BASOPHILS % (MANUAL) 0 % (0-2); EOSINOPHILS % (MANUAL) 1 % (0-6); LYMPHOCYTES % (MANUAL) 16 % (13-45); METAMYELOCYTES % (MANUAL) 1 % (0); MONOCYTES % (MANUAL) 23 % (3-13); SEGMENTED NEUTROPHILS % (MAN) 49 % (42-78); TOTAL CELLS COUNTED 100
[2018-09-15 22:07] LABS: PLATELET COMMENT DECREASED
[2018-09-15] MEDS: CEFAZOLIN 1 GM/D5W RTU 1 GM/50 ML RTUPB IV SCH (23:01)
[2018-09-16] MEDS: INSULIN LISPRO 100 UNIT/ML 3 ML VIAL SUBCUT SCH ×4 (00:26→17:36)
[2018-09-16] MEDS: CEFAZOLIN 1 GM/D5W RTU 1 GM/50 ML RTUPB IV SCH ×3 (05:33→22:55)
[2018-09-16] MEDS: HEPARIN SOD (PORCINE) 5,000 UNIT/ML 1 ML SYRINGE SUBCUT SCH ×3 (05:34→22:56)
[2018-09-16 05:45] LABS: ABSOLUTE MONOCYTES (AUTO) 0.7 10^3/uL (0.1-1.4); ABSOLUTE NEUT (AUTO) 3.2 10^3/uL (1.7-8.2); BASOPHILS % (AUTO) 0.1 % (0-2); HEMATOCRIT 38.9 % (37.9-51.0); HEMOGLOBIN 13.8 g/dL (13.5-17.0); LYMPHOCYTES % (AUTO) 19.8 % (13-45); MEAN CORPUSCULAR HEMOGLOBIN 28.1 pg (27.0-33.4); MEAN CORPUSCULAR HGB CONC 35.6 g/dL (32.0-36.0); MEAN CORPUSCULAR VOLUME 79 fl (80-97); MONOCYTES % (AUTO) 14.8 % (3-13); PLATELET COUNT 111 10^3/uL (150-450); RED BLOOD COUNT 4.93 10^6/uL (4.35-5.55); SEGMENTED NEUTROPHILS % (AUTO) 65.3 % (42-78); TOTAL CELLS COUNTED % (AUTO) 100 %
[2018-09-16 06:04] LABS: ANION GAP 9 (5-19); BLOOD UREA NITROGEN 24 mg/dL (7-20); CALCIUM 8.3 mg/dL (8.4-10.2); CARBON DIOXIDE 28 mmol/L (22-30); CHLORIDE 103 mmol/L (98-107); GLUCOSE 147 mg/dL (75-110); POTASSIUM 4.4 mmol/L (3.6-5.0); SODIUM 139.5 mmol/L (137-145)
[2018-09-16] MEDS: METRONIDAZOLE 500 MG/NS RTU 500 MG/100 ML RTUPB IV SCH ×3 (06:22→22:55)
--- NOTE | 2018-09-16 07:52 | PDOC PROGRESS REPORT ---
Subjective Progress Note for:: 09/16/18 Subjective:: feels well this am no further abd pain wants to eat Reason For Visit: SBO, HTN, DM Physical Exam Vital Signs: Temp Pulse Resp BP Pulse Ox 98.6 F 76 16 147/74 H 94 09/16/18 00:00 09/16/18 00:00 09/16/18 00:00 09/16/18 00:00 09/16/18 00:00 Intake & Output 09/15/18 09/16/18 09/17/18 06:59 06:59 06:59 Intake Total 1000 3896 Output Total 850 2552 Balance 150 1344 Weight 120.8 kg 120.8 kg General appearance: PRESENT: no acute distress Head exam: PRESENT: normocephalic Eye exam: PRESENT: EOMI Mouth exam: PRESENT: moist Neck exam: PRESENT: full ROM Respiratory exam: PRESENT: clear to auscultation kori Cardiovascular exam: PRESENT: RRR Vascular exam: PRESENT: normal capillary refill GI/Abdominal exam: PRESENT: normal bowel sounds, soft Extremities exam: PRESENT: full ROM Musculoskeletal exam: PRESENT: full ROM Neurological exam: PRESENT: alert, awake, oriented to person Psychiatric exam: PRESENT: appropriate affect Skin exam: PRESENT: dry Results Laboratory Results: 09/16/18 04:40 09/16/18 04:40 09/15/18 09/15/18 09/15/18 10:25 14:02 14:02 WBC 5.3 RBC 5.68 H Hgb 15.7 Hct 45.1 MCV 80 MCH 27.7 MCHC 34.9 RDW 14.2 H Plt Count 128 L Seg Neutrophils % Not Reportable Lymphocytes % Not Reportable Monocytes % Not Reportable Eosinophils % Not Reportable Basophils % Not Reportable Absolute Neutrophils Not Reportable Absolute Lymphocytes Not Reportable Absolute Monocytes Not Reportable Absolute Eosinophils Not Reportable Absolute Basophils Not Reportable Sodium 138.6 Potassium 4.1 Chloride 96 L Carbon Dioxide 30 Anion Gap 13 BUN 28 H Creatinine 0.87 Est GFR ( Amer) > 60 Est GFR (Non-Af Amer) > 60 Glucose 206 H Calcium 8.2 L Magnesium 2.8 H Blood Type A POSITIVE Antibody Screen NEGATIVE 09/15/18 09/16/18 09/16/18 20:33 04:40 04:40 WBC 5.0 RBC 4.93 Hgb 13.8 Hct 38.9 MCV 79 L MCH 28.1 MCHC 35.6 RDW 14.0 Plt Count 111 L Seg Neutrophils % 65.3 Lymphocytes % 19.8 Monocytes % 14.8 H Eosinophils % 0.0 Basophils % 0.1 Absolute Neutrophils 3.2 Absolute Lymphocytes 1.0 Absolute Monocytes 0.7 Absolute Eosinophils 0.0 Absolute Basophils 0.0 Sodium 136.7 L 139.5 Potassium 4.3 4.4 Chloride 101 103 Carbon Dioxide 29 28 Anion Gap 7 9 BUN 25 H 24 H Creatinine 0.80 0.71 Est GFR ( Amer) > 60 > 60 Est GFR (Non-Af Amer) > 60 > 60 Glucose 184 H 147 H Calcium 8.0 L 8.3 L Magnesium Blood Type Antibody Screen Impressions: Acute Abdomen Series 09/15/18 02:51 IMPRESSION: No acute cardiopulmonary process. Findings concerning for small bowel obstruction copyright 2011 [employer]- All Rights Reserved Abdomen/Pelvis CT 09/15/18 04:00 IMPRESSION: 1. CT findings compatible with a mid to distal small bowel obstruction. The transition point is not clearly visualized but is suspected to be within the right lower quadrant. 2. Colonic diverticulosis. 3. Hepatosplenomegaly and fatty infiltration of the liver. Assessment & Plan - Diagnosis (1) Small bowel obstruction Is this a current diagnosis for this admission?: Yes - Plan Summary Plan Summary: s/p diagnositc laparoscopy for sbo noted ileus and food bolus in terminal ileum this am sxs resolved will start clears home in am if vaishali.
[2018-09-16] MEDS ORDERED: CLONAZEPAM 1 MG TABLET PO PRN (07:53)
[2018-09-16] MEDS: CLONAZEPAM 1 MG TABLET PO SCH ×2 (09:25→22:54)
[2018-09-16] MEDS: ATENOLOL 50 MG TABLET PO SCH (09:29)
--- NOTE | 2018-09-16 09:35 | OPERATIVE REPORT E ---
Operative Report NAME: DASHA JARQUIN : 1960 AGE: 58Y DATE OF SURGERY: 09/15/2018 ROOM: 405 PREOPERATIVE DIAGNOSIS: ABDOMINAL PAIN, POSSIBLE CLOSED LOOP SMALL BOWEL OBSTRUCTION. POSTOPERATIVE DIAGNOSIS: ILEUS. OPERATIVE PROCEDURE: Diagnostic laparoscopy. SURGEON: FELICE BARBER M.D. INDICATIONS FOR PROCEDURE: This is a 58-year-old male who presented this morning to the emergency room with increasing abdominal pain, nausea, and vomiting. He was found to be distended. NG tube was placed and he had a large output of over [address] scan of the abdomen was performed without oral contrast, which revealed findings suggestive of a possible small bowel obstruction versus ileus, although he had never had surgery before. He was admitted to the hospital service with NG suction. Later in the day he developed increasing abdominal pain and I re-reviewed the CT scan with the radiologist who felt that it might be a internal hernia. She also noted a possible air bubble in the portal venous system. Because of the increasing abdominal pain he was brought to surgery for diagnostic laparoscopy. PROCEDURE: The patient was brought to the operating room awake, alert, in stable condition, placed on the operative table in the supine incision, induced under general anesthesia, intubated. The abdomen was prepped and draped in the usual sterile manner for the procedure. After an appropriate timeout a Veress needle was placed into the umbilicus and the abdomen was insufflated with 6 L of CO2 gas. An supraumbilical 5 mm incision was utilized and a 5 mm port was placed into the abdominal cavity. Intraabdominal visualization revealed no evidence of Veress needle or trocar injury; however there were multiple dilated small bowel loops. We then placed 2 left-sided 5 mm ports under direct vision. Placed the patient in Trendelenburg and I was able to identify the cecum. That appeared to be normal without evidence of inflammation around it. The terminal ileum also appeared to be decompressed. I began from their and started running the terminal ileum back proximally 15 to 20 cm where we noted a transition into the very dilated small bowel, but there was no evidence of a band or an internal obstruction from a food bolus. As soon as I lifted the terminal ileum up and allowed the fold to be released, I saw fluid rosales through into the decompressed small bowel. I then carefully ran the entire length of the small bowel from the terminal ileum to the ligament of Treitz and noted no evidence of any other obstruction point or pathology within the small bowel. It was filled with fluid, but no evidence of any obstructive point. I then returned to the cecum and identified that and examined the ascending colon. There was a lot of intraabdominal mesenteric fat, so it was somewhat difficult to see the entire length of the ascending colon, but I did have an adequate look at the transverse colon. Noted no masses and the splenic flexure also appeared to be normal as was the descending colon and sigmoid colon. In the pelvis there was some ascitic fluid, but there were no masses or any areas of phlegmon or inflammation. Placed the patient in reverse Trendelenburg. He had a distended transverse colon, so it was difficult to see the stomach, but I saw no evidence of any fibrinous exudate or fluid up in the upper abdomen. At this point I elected to terminate the procedure. I reduced the pneumoperitoneum and removed the ports. I closed the fascial defect with 0 Vicryl and closed the skin with intracuticular 3-0 Vicryl and Steri-Strips completed the procedure. Estimated blood loss was negligible. Sponge and needle counts were correct x3. The patient was transferred to recovery in stable condition. DICTATING PHYSICIAN: FELICE BARBER M.D. [id number] PHY#: [id number] ID: [id number] JOB#: [id number] ACCT: [id number] cc:FELICE BARBER M.D. >
[2018-09-16] MEDS ORDERED: ROCURONIUM BROMIDE INJ 50 MG/5 ML VIAL IV ONE (14:55)
[2018-09-16] MEDS ORDERED: SUCCINYLCHOLINE CHLORIDE INJ 200 MG/10 ML VIAL ONE (14:55)
--- NOTE | 2018-09-16 17:02 | PDOC PROGRESS REPORT ---
Subjective Progress Note for:: 09/16/18 Subjective:: 58 y.o. M with a PMH of CAD, HTN, HLD, GERD, diverticulosis. Admitted to the hospitalist service with surgery consulted for medical management of small bowel obstruction. CT abdomen/pelvis shows mid to distal small bowel obstruction, transition point not clearly visualized, colonic diverticulosis, hepatosplenomegaly and fatty infiltration of the liver. Patient went to the OR yesterday evening with Dr. Salinas for exploratory laparoscopy. Procedure was relatively normal, no significant findings that could explain patient's severe abdominal pain. Today, the patient was upright and ambulating in the hallway. He appears in good spirits. His clinical picture has significantly improved when compared to 24 hours ago. Patient states that his abdominal pain has significantly improved. Able to tolerate clear liquid diet. Abdomen still appears distended and tight, although, nontender. Plan to remain inpatient for medical management of small bowel obstruction. Likely discharge home in 24 to 48 hours. Reason For Visit: SBO, HTN, DM Physical Exam Vital Signs: Temp Pulse Resp BP Pulse Ox 98.1 F 79 18 145/78 H 94 09/16/18 13:15 09/16/18 13:15 09/16/18 13:15 09/16/18 13:15 09/16/18 13:15 Intake & Output 09/15/18 09/16/18 09/17/18 06:59 06:59 06:59 Intake Total 1000 3896 150 Output Total 850 2552 Balance 150 1344 150 Weight 120.8 kg 120.8 kg General appearance: PRESENT: no acute distress, obese Head exam: PRESENT: atraumatic, normocephalic Eye exam: PRESENT: conjunctiva pink, EOMI, PERRLA. ABSENT: scleral icterus Ear exam: PRESENT: normal external ear exam Mouth exam: PRESENT: moist, tongue midline Teeth exam: PRESENT: poor dentation Neck exam: ABSENT: carotid bruit, JVD, lymphadenopathy, thyromegaly Respiratory exam: PRESENT: clear to auscultation kori, symmetrical, unlabored. ABSENT: rales, rhonchi, wheezes Cardiovascular exam: PRESENT: RRR. ABSENT: diastolic murmur, rubs, systolic murmur Pulses: PRESENT: normal radial pulses, normal dorsalis pedis pul Vascular exam: PRESENT: normal capillary refill GI/Abdominal exam: PRESENT: distended, normal bowel sounds. ABSENT: guarding, mass, organolmegaly, rebound, tenderness Rectal exam: PRESENT: deferred Extremities exam: PRESENT: full ROM. ABSENT: calf tenderness, clubbing, pedal edema Musculoskeletal exam: PRESENT: ambulatory, full ROM Neurological exam: PRESENT: alert, awake, oriented to person, oriented to place, oriented to time, oriented to situation Psychiatric exam: PRESENT: appropriate affect, normal mood Skin exam: PRESENT: dry, intact, warm. ABSENT: cyanosis, rash Results Laboratory Results: 09/16/18 04:40 09/16/18 04:40 09/15/18 09/15/18 09/16/18 14:02 20:33 04:40 WBC 5.3 5.0 RBC 5.68 H 4.93 Hgb 15.7 13.8 Hct 45.1 38.9 MCV 80 79 L MCH 27.7 28.1 MCHC 34.9 35.6 RDW 14.2 H 14.0 Plt Count 128 L 111 L Seg Neutrophils % Not Reportable 65.3 Lymphocytes % Not Reportable 19.8 Monocytes % Not Reportable 14.8 H Eosinophils % Not Reportable 0.0 Basophils % Not Reportable 0.1 Absolute Neutrophils Not Reportable 3.2 Absolute Lymphocytes Not Reportable 1.0 Absolute Monocytes Not Reportable 0.7 Absolute Eosinophils Not Reportable 0.0 Absolute Basophils Not Reportable 0.0 Sodium 136.7 L Potassium 4.3 Chloride 101 Carbon Dioxide 29 Anion Gap 7 BUN 25 H Creatinine 0.80 Est GFR ( Amer) > 60 Est GFR (Non-Af Amer) > 60 Glucose 184 H Calcium 8.0 L 09/16/18 04:40 WBC RBC Hgb Hct MCV MCH MCHC RDW Plt Count Seg Neutrophils % Lymphocytes % Monocytes % Eosinophils % Basophils % Absolute Neutrophils Absolute Lymphocytes Absolute Monocytes Absolute Eosinophils Absolute Basophils Sodium 139.5 Potassium 4.4 Chloride 103 Carbon Dioxide 28 Anion Gap 9 BUN 24 H Creatinine 0.71 Est GFR ( Amer) > 60 Est GFR (Non-Af Amer) > 60 Glucose 147 H Calcium 8.3 L Impressions: Acute Abdomen Series 09/15/18 02:51 IMPRESSION: No acute cardiopulmonary process. Findings concerning for small bowel obstruction copyright 2011 [employer]- All Rights Reserved Abdomen/Pelvis CT 09/15/18 04:00 IMPRESSION: 1. CT findings compatible with a mid to distal small bowel obstruction. The transition point is not clearly visualized but is suspected to be within the right lower quadrant. 2. Colonic diverticulosis. 3. Hepatosplenomegaly and fatty infiltration of the liver. Status: Imported from PACS Assessment and Plan - Diagnosis (1) Small bowel obstruction Is this a current diagnosis for this admission?: Yes Plan: Seen on CT Last colonoscopy was 2 years ago, reportedly normal POD 1 exploratory laparoscopy, no significant findings -no evidence of band or internal obstruction from food bolus. Dr. Salinas was able to manually decompress the small bowel. Patient reports significant relief following ex lap Will advance diet tomorrow, if tolerable, will consider discharge home PRN Dilaudid IV for pain PRN ondansetron for nausea (2) Hypertension Is this a current diagnosis for this admission?: Yes Plan: SBP moderately controlled with home dose atenolol Will add PO lisinopril to the patient's regimen PRN hydralazine IVfor SBP>180 - Time Time Spent with patient: 15-24 minutes Medications reviewed and adjusted accordingly: Yes Anticipated discharge: Home Within: within 24 hours, within 48 hours - Inpatient Certification Based on my medical assessment, after consideration of the patient's comorbidities, presenting symptoms, or acuity I expect that the services needed warrant INPATIENT care.: Yes I certify that my determination is in accordance with my understanding of Medicare's requirements for reasonable and necessary INPATIENT services [42 CFR 412.3e].: Yes Medical Necessity: Need For Continuous Telemetry Monitoring, Need for IV Antibiotics, Need for Surgery, Risk of Complication if Not Cared For in Hospital
[2018-09-16 18:57] LABS: ANION GAP 9 (5-19); BLOOD UREA NITROGEN 19 mg/dL (7-20); CALCIUM 8.5 mg/dL (8.4-10.2); CARBON DIOXIDE 27 mmol/L (22-30); CHLORIDE 104 mmol/L (98-107); GLUCOSE 128 mg/dL (75-110); POTASSIUM 3.8 mmol/L (3.6-5.0); SODIUM 139.7 mmol/L (137-145)
[2018-09-16] MEDS: PANTOPRAZOLE SODIUM 40 MG VIAL IV SCH (22:54)
[2018-09-17] MEDS: LISINOPRIL 10 MG TABLET PO SCH ×2 (04:26→09:05)
[2018-09-17] MEDS: INSULIN LISPRO 100 UNIT/ML 3 ML VIAL SUBCUT SCH ×2 (04:30→07:17)
[2018-09-17 05:58] LABS: ABSOLUTE EOSINOPHILS # (AUTO) 0.1 10^3/uL (0.0-0.6); ABSOLUTE LYMPHOCYTES (AUTO) 2.1 10^3/uL (0.5-4.7); ABSOLUTE MONOCYTES (AUTO) 0.7 10^3/uL (0.1-1.4); ABSOLUTE NEUT (AUTO) 2.8 10^3/uL (1.7-8.2); BASOPHILS % (AUTO) 0.3 % (0-2); EOSINOPHILS % (AUTO) 1.3 % (0-6); HEMATOCRIT 38.5 % (37.9-51.0); HEMOGLOBIN 13.2 g/dL (13.5-17.0); LYMPHOCYTES % (AUTO) 37.1 % (13-45); MEAN CORPUSCULAR HEMOGLOBIN 27.8 pg (27.0-33.4); MEAN CORPUSCULAR HGB CONC 34.4 g/dL (32.0-36.0); MEAN CORPUSCULAR VOLUME 81 fl (80-97); MONOCYTES % (AUTO) 12.6 % (3-13); PLATELET COUNT 117 10^3/uL (150-450); RED BLOOD COUNT 4.76 10^6/uL (4.35-5.55); SEGMENTED NEUTROPHILS % (AUTO) 48.7 % (42-78); TOTAL CELLS COUNTED % (AUTO) 100 %; WHITE BLOOD COUNT 5.7 10^3/uL (4.0-10.5)
[2018-09-17] MEDS: METRONIDAZOLE 500 MG/NS RTU 500 MG/100 ML RTUPB IV SCH (06:11)
[2018-09-17] MEDS: CEFAZOLIN 1 GM/D5W RTU 1 GM/50 ML RTUPB IV SCH (06:13)
[2018-09-17] MEDS: HEPARIN SOD (PORCINE) 5,000 UNIT/ML 1 ML SYRINGE SUBCUT SCH (06:42)
[2018-09-17] MEDS: PANTOPRAZOLE SODIUM 40 MG VIAL IV SCH (09:04)
[2018-09-17] MEDS: CLONAZEPAM 1 MG TABLET PO SCH (09:08)
[2018-09-17] MEDS: ATENOLOL 50 MG TABLET PO SCH (09:09)
--- NOTE | 2018-09-17 10:35 | PDOC PROGRESS REPORT ---
Subjective Progress Note for:: 09/17/18 Reason For Visit: SBO, HTN, DM feels well vaishali po full liquids will dc home Physical Exam Vital Signs: Temp Pulse Resp BP Pulse Ox 98.3 F 51 L 17 144/77 H 97 09/17/18 07:30 09/17/18 07:30 09/17/18 07:30 09/17/18 07:30 09/17/18 07:30 Intake & Output 09/16/18 09/17/18 09/18/18 06:59 06:59 06:59 Intake Total 3896 2170 150 Output Total 2552 500 Balance 1344 1670 150 Weight 120.8 kg 121 kg General appearance: PRESENT: no acute distress Head exam: PRESENT: normocephalic Eye exam: PRESENT: EOMI Ear exam: PRESENT: normal external ear exam Mouth exam: PRESENT: moist Neck exam: PRESENT: full ROM Respiratory exam: PRESENT: clear to auscultation kori Cardiovascular exam: PRESENT: RRR Pulses: PRESENT: normal radial pulses, normal femoral pulses GI/Abdominal exam: PRESENT: soft Rectal exam: PRESENT: deferred Extremities exam: PRESENT: full ROM Musculoskeletal exam: PRESENT: full ROM Neurological exam: PRESENT: alert, awake, oriented to person, oriented to place Psychiatric exam: PRESENT: appropriate affect Skin exam: PRESENT: dry Results Laboratory Results: 09/17/18 05:14 09/16/18 18:27 09/16/18 09/17/18 18:27 05:14 WBC 5.7 RBC 4.76 Hgb 13.2 L Hct 38.5 MCV 81 MCH 27.8 MCHC 34.4 RDW 14.0 Plt Count 117 L Seg Neutrophils % 48.7 Lymphocytes % 37.1 Monocytes % 12.6 Eosinophils % 1.3 Basophils % 0.3 Absolute Neutrophils 2.8 Absolute Lymphocytes 2.1 Absolute Monocytes 0.7 Absolute Eosinophils 0.1 Absolute Basophils 0.0 Sodium 139.7 Potassium 3.8 Chloride 104 Carbon Dioxide 27 Anion Gap 9 BUN 19 Creatinine 0.81 Est GFR ( Amer) > 60 Est GFR (Non-Af Amer) > 60 Glucose 128 H Calcium 8.5 Impressions: Acute Abdomen Series 09/15/18 02:51 IMPRESSION: No acute cardiopulmonary process. Findings concerning for small bowel obstruction copyright 2011 [employer]- All Rights Reserved Abdomen/Pelvis CT 09/15/18 04:00 IMPRESSION: 1. CT findings compatible with a mid to distal small bowel obstruction. The transition point is not clearly visualized but is suspected to be within the right lower quadrant. 2. Colonic diverticulosis. 3. Hepatosplenomegaly and fatty infiltration of the liver. Assessment & Plan - Diagnosis (1) Small bowel obstruction Is this a current diagnosis for this admission?: Yes - Plan Summary Plan Summary: doing well discussed post discharge diet will dc home today f/u with me in a week.
[2018-09-17 11:00] VITALS: BP 157/87
--- NOTE | 2018-09-17 13:09 | DISCHARGE SUMMARY E ---
Discharge Summary NAME: DASHA JARQUIN : 1960 AGE: 58Y ADMITTED: 09/15/2018 DISCHARGED: 09/17/2018 ADMISSION DIAGNOSIS: Small bowel obstruction. DISCHARGE DIAGNOSIS: Small bowel obstruction. OPERATIONS: Diagnostic laparoscopy with release of small bowel obstruction. SURGEON: Compa Barber M.D. REASON FOR HOSPITALIZATION AND HOSPITAL COURSE: This is a 58-year-old male who presented to the emergency room on the 10th in the morning complaining of increasing abdominal pain after eating a large meal 2 days before. The patient is morbidly obese and stated that he has not had a bowel movement for 24 hours and was not passing flatus. Because of the abdominal pain, CT scan was obtained in the emergency room, which showed a distal small bowel obstruction. He was admitted with NG suction. Later in the day, the patient had increasing abdominal pain and was called by the nurse who stated the pain was worse than when he presented to the emergency room. I consulted Radiology to review the CT scan with me and it was felt that he had a distal ileal obstruction with possible internal hernia. For this reason, he was taken to the operating room for diagnostic laparoscopy. He was brought to the operating room and underwent a diagnostic laparoscopy showing a food bolus in his distal ileum, which was manipulated through and no other operative procedure was done. Postoperatively, he felt better and was, that evening, started on clear liquid diet and was slowly advanced to full liquid diet the next day. By the second day postop, he was up and around, tolerating a full liquid diet. He felt well. He was having bowel movements and ready for discharge home. He will be discharged home today with a followup in 1 week after discharge. No discharge medications are going to be given. He is instructed to call the clinic or return to the emergency room should any increasing abdominal pain occur, any wound problems, such as cellulitis or bleeding. Again, no discharge medications. FINAL DIAGNOSIS: Small bowel obstruction. DICTATING PHYSICIAN: COMPA BARBER M.D. [id number] PHY#: [id number] ID: [id number] JOB#: [id number] ACCT: [id number] cc:Mirtha KATE M.D. >
== END 2018-09-17 11:31 | disposition home or self-care (01) | DRG 337 ==
LOC: ER 02:21 → EH 05:57 → 4N 12:28
PROVIDERS: ADMIT Internal Medicine; ATTEND Internal Medicine
PROC: 0DN84ZZ Release Small Intestine, Percutaneous Endoscopic Approach (ICD-10-PCS; principal; 2018-09-15 16:00)
DX: K56.7 Ileus, unspecified (principal); L40.9 Psoriasis, unspecified; I25.10 Atherosclerotic heart disease of native coronary artery without angina pectoris; E78.5 Hyperlipidemia, unspecified; I10 Essential (primary) hypertension; E11.9 Type 2 diabetes mellitus without complications; K21.9 Gastro-esophageal reflux disease without esophagitis; G25.2 Other specified forms of tremor; E86.0 Dehydration; E66.01 Morbid (severe) obesity due to excess calories; M79.18 Myalgia, other site; Z79.899 Other long term (current) drug therapy; Z79.84 Long term (current) use of oral hypoglycemic drugs; Z88.6 Allergy status to analgesic agent; Z79.82 Long term (current) use of aspirin; Z82.49 Family history of ischemic heart disease and other diseases of the circulatory system
CPT/HCPCS: 36415; 74022; 74177; 790; 80048; 80053; 82962; 83036; 83605; 83690; 83735; 85025; 86850; 86900; 86901; 93005; 93010; 96374; 96375; 96376; 99285; J0330; J0360; J0690; J1100; J1170; J1885; J2250; J2405; J2704; J3010; J3490; J7030; J7050; J7120; S0164

== ENCOUNTER → 2020-04-13 | Outpatient (CLI) | payer SELFPAY ==
--- NOTE | 2020-04-13 12:18 | RADIOLOGY REPORT (SQ) ---
EXAM DESCRIPTION: FEMUR LEFT IMAGES COMPLETED DATE/TIME: 04/13/2020 9:42 am REASON FOR STUDY: UNSPECIFIED INJURY OF LEFT LOWER LEG, INITIAL ENCOUNTER S89.92XA UNSPECIFIED INJU RY OF LEFT LOWER LEG, INITIAL ENCOU COMPARISON: None. NUMBER OF VIEWS: Two views. TECHNIQUE: Two radiographic images acquired of the left femur to include hip and knee in at least on e projection. LIMITATIONS: None. FINDINGS: MINERALIZATION: Normal. BONES: No acute fracture. No worrisome bone lesions. SOFT TISSUES: No obvious swelling or foreign body. OTHER: No other significant finding. IMPRESSION: NEGATIVE STUDY OF THE LEFT FEMUR. NO RADIOGRAPHIC EVIDENCE OF ACUTE INJURY. TECHNICAL DOCUMENTATION: JOB ID: [id number] 2010 [employer]- All Rights Reserved Reading location - IP/workstation name: [email or web address]
== END ==
LOC: RAD 09:14
PROVIDERS: ATTEND Nurse Practitioner Primary Care
DX: S89.92XA Unspecified injury of left lower leg, initial encounter (principal); X58.XXXA Exposure to other specified factors, initial encounter